=== PATIENT | male | born 1960 | race Caucasian/White ===

== ENCOUNTER → 2016-10-27 | Outpatient (CLI) | payer MEDICARE, OTHER ==
[2014-02-23 16:43] VITALS: BP 101/59
[~2016-10-27] MED LIST: BACL10TA PO; FENT1PAT17 TD; FOLI1TAB16 PO; FURO-68 PO; LACT10SO26 PO; LORA-627 PO; MULT1TAB97 PO; OMEP20TA PO; OMEP20TA63 PO; OXYC10TA PO; PRAM0.255 PO; SPIR100T PO; albuterol inhaler INH
--- NOTE | 2016-10-27 08:41 | KCIC ---
PROCEDURE Head CT without contrast; maxillofacial bone CT without contrast. HISTORY Chronic headaches. Maxillary sinusitis. Congestion. TECHNIQUE Computed tomographic images of the head and maxillofacial bones were obtained without contrast. One or more of the following individualized dose reduction techniques were utilized for this examination: 1. Automated exposure control; 2. Adjustment of the mA and/or kV according to patient size; 3. Use of iterative reconstruction technique. COMPARISON None. FINDINGS There is no acute or subacute hemorrhage. There is no mass effect or midline shift. There is no hydrocephalus. The [place] and white matter differentiation pattern is intact. The mastoid air cells are clear. The temporomandibular joints are intact. No calvarial lesion is seen. There is mild right greater than left maxillary and mild frontal, ethmoid and sphenoid sinus mucosal thickening. The ostiomeatal units are patent. There is rightward nasal septal deviation. There is no sinus wall erosion or thickening. The orbits are unremarkable. There is lucency surrounding the roots of multiple maxillary teeth. There are multiple missing and partially missing teeth and suspected dental caries. There is degenerative endplate remodeling and facet arthropathy at the visualized cervical vertebral levels. There is mild anterolisthesis of C3 on C4 and C4 on C5. There is bilateral foraminal stenosis at the upper cervical levels, incompletely evaluated on the current exam. IMPRESSION 1. No acute intracranial finding. 2. Mild paranasal sinus mucosal thickening without obstruction of the ostiomeatal units or an air-fluid level. 3. Nasal septal deviation. 4. Poor dentition, including multiple maxillary periapical lucencies, dental caries, and missing and fractured teeth. 5. Degenerative change within the visualized cervical spine, incompletely evaluated on the current exam. Electronically signed by: Celena Alexander (Oct 27, 2016 08:39:30)
== END | disposition home or self-care (01) ==
LOC: KCIC CT 07:45
PROVIDERS: ATTEND Nurse Practitioner Family
DX: M47.892 Other spondylosis, cervical region (principal); J32.0 Chronic maxillary sinusitis; J34.2 Deviated nasal septum; M48.02 Spinal stenosis, cervical region; M12.88 Other specific arthropathies, not elsewhere classified, other specified site
CPT/HCPCS: 70450; 70486

== ENCOUNTER → 2017-04-29 | Outpatient (CLI) | payer MEDICARE ==
[2014-02-23 16:43] VITALS: BP 101/59
[~2017-04-29] MED LIST changes: -OMEP20TA PO; +OMEP20TA8 PO
--- NOTE | 2017-04-29 10:19 | KCIC ---
4 view cervical spine dated 04/29/2017. Comparison made to 12/31/2015. CLINICAL INDICATION: Neck pain for 9 months. Bilateral shoulder pain. FINDINGS: AP, lateral, swimmer's and odontoid views obtained. There is grade 1 anterolisthesis of C3 on C4, new from prior study. There is also slight anterolisthesis of C4 on C5, new. No prevertebral soft tissue swelling. Mild hypertrophic change of the superior and inferior endplates throughout with mild multilevel uncovertebral spurring and mild/moderate facet arthropathy. C1-C2 articulation unremarkable. IMPRESSION: 1. Grade 1 anterolisthesis of C3 on C4, new from prior study. Instability at this level cannot be excluded. MRI would better evaluate. 2. Mild listhesis of C4 on C5, slightly increased from prior exam. 3. Mild to moderate multilevel spondylosis. Electronically signed by: Boris Bone MD (04/29/2017 10:16 AM) [facility]-[id number]
== END | disposition home or self-care (01) ==
LOC: KCIC 08:29
PROVIDERS: ATTEND Psychiatry & Neurology Neurology with Special Qualifications in Child Neurology
DX: M47.892 Other spondylosis, cervical region (principal); M12.88 Other specific arthropathies, not elsewhere classified, other specified site
CPT/HCPCS: 72040

== ENCOUNTER → 2017-05-07 | Outpatient (CLI) | payer MEDICARE ==
[2014-02-23 16:43] VITALS: BP 101/59
--- NOTE | 2017-05-07 09:30 | KCIC ---
EXAM: Cervical spine, flexion and extension. HISTORY: Pain. Kyphosis. COMPARISON: 12/31/2015 and 04/29/2017. FINDINGS: Frontal, lateral, bilateral oblique, flexion and extension and odontoid views of the cervical spine are obtained. There is thoracic kyphosis and reversal of inferior cervical lordosis. There is moderate anterolisthesis of C3 on C4 measuring 7 mm. This decreases to 6 mm with extension and does not change with flexion. There is 3 mm anterolisthesis of C4 on C5 which does not change between flexion and extension. There is degenerative endplate remodeling with disc space narrowing and anterior predominant osteophytosis at C6-C7, and to a lesser extent, C5-C6. There is facet arthropathy at multiple levels, contusion to suspected foraminal stenosis. This difficult to confirm given the degree of thoracic kyphosis. IMPRESSION: 1. Thoracic and cervical kyphosis and multilevel cervical anterolisthesis, predominantly at C3-C4. The degree of listhesis at C3-C4 minimally decrease in with extension and does not change with flexion. There is no change between flexion and extension at the remainder of the cervical levels. 2. Degenerative change predominantly at C6-C7, and to a lesser extent, C5-C6. Electronically signed by: Celena Alexander MD (05/07/2017 9:27 AM) [facility]
--- NOTE | 2017-05-07 09:43 | KCIC ---
EXAM: Cervical spine CT without contrast. HISTORY: Pain. Anterolisthesis. Kyphosis. TECHNIQUE: Computed tomographic images of the cervical spine were obtained without contrast. Multiplanar reformatting was performed. *One or more of the following individualized dose reduction techniques were utilized for this examination: 1. Automated exposure control. 2. Adjustment of the mA and/or kV according to patient size. 3. Use of iterative reconstruction technique. COMPARISON: Radiographs obtained on the same date. FINDINGS: There is mild cervical kyphosis and moderate thoracic kyphoscoliosis. There is anterolisthesis of C3 on C4, measuring 5 mm. There is anterolisthesis of C2 on C3 and C4 on C5, measuring 2 mm. There is a mild superior endplate depression at C7, degenerative in etiology. There are few small lucent lesions within the cervical spine primarily at C6 and T1, 2 small to characterize and possibly hemangiomas. There is degenerative endplate remodeling with left anterior endplate osteophytosis at C6-C7. There is additional endplate remodeling and osteophytosis at the remainder of the cervical levels. There are bridging anterior osteophytes at the visualized upper thoracic vertebral levels. There are a few endplate Schmorl's nodes. There is advanced facet arthropathy primarily at the upper cervical levels, described in detail below. At C2-C3, there is a disc bulge and endplate remodeling. There is moderate right facet arthropathy. There is no stenosis. At C3-C4, there is a disc bulge and endplate remodeling. There is moderate right and severe left facet arthropathy. There is uncovertebral arthropathy. There is moderate to severe bilateral foraminal stenosis. There is mild central canal stenosis. At C4-C5, there is a suspected posterior central disc protrusion superimposed on a disc bulge and endplate remodeling. There is moderate right and mild left facet arthropathy. There is right greater than left uncovertebral arthropathy. There is moderate right and mild left foraminal stenosis. There is mild central canal stenosis. At C5-C6, there is a broad-based posterior central disc protrusion superimposed on a disc bulge and endplate remodeling. There is right greater than left uncovertebral arthropathy. There is moderate right foraminal stenosis. There is moderate to severe central canal stenosis, measuring 6.4 mm in anterior posterior dimension. At C6-C7, there is a right paracentral to foraminal disc protrusion and osteophyte complex imposed on a disc bulge and left anterior lateral predominant endplate osteophytosis. There is right greater than left uncovertebral arthropathy. There is moderate right and mild left foraminal stenosis. At C7-T1, there is a right paracentral to foraminal disc protrusion and osteophyte complex. There is no stenosis. At T1-T2, there is no stenosis. At T2-T3, there is a right paracentral disc protrusion and osteophyte complex. There is no stenosis. IMPRESSION: 1. Multilevel degenerative change throughout the cervical spine, described in detail above. This contributes to moderate to severe bilateral foraminal and mild central canal stenosis at C3-C4, moderate right and mild left foraminal and mild central canal stenosis at C4-C5, moderate right foraminal and moderate to severe central canal stenosis at C5-C6, and moderate right and mild left foraminal stenosis at C6-C7. 2. Mild cervical kyphosis and moderate thoracic kyphoscoliosis. There is superimposed anterolisthesis primarily at C3-C4. 3. Small lucent lesions within C6 and T1. These are too small to characterize. In the absence of known malignancy, these may be tiny hemangiomas or areas of focal bone demineralization. 4. Bridging anterior osteophytes at the upper thoracic levels, incompletely evaluated on the current exam. Electronically signed by: Celena Alexander MD (05/07/2017 9:39 AM) [facility]-KCIC1
== END | disposition home or self-care (01) ==
LOC: KCIC CT 08:16
PROVIDERS: ATTEND Psychiatry & Neurology Neurology with Special Qualifications in Child Neurology
DX: M48.02 Spinal stenosis, cervical region (principal); M50.321 Other cervical disc degeneration at C4-C5 level; M50.322 Other cervical disc degeneration at C5-C6 level; M50.323 Other cervical disc degeneration at C6-C7 level
CPT/HCPCS: 72052; 72125

== ENCOUNTER → 2017-05-13 | Outpatient (CLI) | payer MEDICARE ==
[2014-02-23 16:43] VITALS: BP 101/59
[~2017-05-13] MED LIST changes: +AMBR5TAB3 PO; +GABA-586 PO; +IOHEXOL 180 MG/ML 10 ML VIAL. ONE; +MONT10TA9 PO; +POTASSIUM CHLO10 MEQ PO; +SAW450CA2 PO; +TADA20TA33 PO; +TRAM50TA PO; +VITA1TAB19 PO; +methylPREDNISolone ACETATE 40 MG/ML VIAL. ONE; +methylPREDNISolone ACETATE 80 MG/ML VIAL. ONE
--- NOTE | 2017-05-13 18:25 | PAIN ---
DATE OF SERVICE: 05/13/2017 INITIAL CONSULTATION FOR PAIN CLINIC CHIEF COMPLAINT: Neck and bilateral shoulder pain. HISTORY OF PRESENT ILLNESS: This is a 56-year-old male who presents with history of pain in the base of the neck and shoulders for about 4 months many years by his report prior to this without any specific injury or accident that he is aware of, but last 3-4 months is becoming much much worse in the base of the neck and shoulders, occasional headaches on the left side that mostly at the base of the neck and shoulders with some occasional radiation in the upper extremities but mostly posterior in the shoulders. The patient reports he has had physical therapies in the past, which were not very helpful and is doing some stretching on his own at home, but as he goes long he has much more forward flexion of his neck, this is more comfortable and he is noticeably flexed in position during the interview and exam. The patient reports the pain is sharp, stabbing, shooting intermittent in intensity, but always present. Also, has some low back issues, which is secondary at this point. The patient reports his disability range is 0 in all categories, but reports that it occasionally awakens him from sleep, not most nights. He does take some sleeping medication. The patient reports it does not affect his ability to walk or bowel or bladder control in fact the patient did have a CT scan of the cervical spine. He is unable to lay flat for more than few minutes secondary to the pain in his neck and back. CT scan showing multilevel degenerative changes throughout the cervical spine, moderate to severe bilateral foraminal mild central canal stenosis at C3-C4, moderate right and mild left foraminal central canal stenosis, C4-C5, moderate right foraminal, moderate to severe central canal stenosis at C5-C6 and moderate right and mild left foraminal stenosis at C6-C7. The patient reports no loss of motor function to upper extremities, but significant fatigability, more on the left than the right with repetitive activity. PAST MEDICAL HISTORY: Significant for arthritis, cirrhosis, shortness of breath, pulmonary hypertension, previous blood clots, sinus infections. PREVIOUS SURGERY: Include lumbar laminectomy in 1990, eye surgery in 1990 also hernia repair ventral in 2007 and TIPS procedure for his liver in 2007, also. CURRENT MEDICATIONS: Include Prilosec, oxycodone, folic acid, Mirapex, daily vitamins, Aldactone, baclofen, loratadine, gabapentin, saw palmetto, B complex , montelukast, tramadol, potassium, tadalafil and Letairis. ALLERGIES: The patient has no known drug allergies. FAMILY HISTORY: Significant for lung cancer, Alzheimer's and heart disease. SOCIAL HISTORY: The patient does not smoke, quit drinking many years ago, single, lives with his brother locally in [place], [place]. REVIEW OF SYSTEMS: The patient's review of systems is positive for those items mentioned in history of present illness. All systems reviewed and otherwise negative. It is complete, full and well documented on the patient's chart. PHYSICAL EXAMINATION: VITAL SIGNS: Blood pressure 137/70, pulse is 96, respirations 18, temperature is 98.0 degrees Fahrenheit. Height is 5 feet 10 inches, weighs 193 pounds. GENERAL: The patient is awake, alert, oriented, appropriate, very pleasant demeanor. HEENT: Head shows normocephalic, atraumatic. Extraocular movements are intact, symmetrical. Oral cavity, mucous membranes are moist and pink. Dentition is intact. NECK: Shows anterior throat supple without palpable lymphadenopathy noted. Swallow reflex is symmetrical. CHEST: Shows normal on inspection. Breath sounds clear to auscultation bilaterally. HEART: Shows S1 and S2 clear. ABDOMEN: Soft, nontender, nondistended. No palpable organomegaly. No rebound or guarding demonstrated. BACK: Shows spine grossly in the midline. Significant forward flexion of the cervical spine as well as some increased thoracic kyphosis noted and some flattening of lumbar lordotic curvature. No previous bruises, lesions or rashes are noted. The patient has some old scarring from apparent previous skin acne throughout the back. With palpation cervical paraspinous musculature shows moderate tender with palpation bilaterally, somewhat worse on the left than the right, but very firm and tender musculature in the superior, medial and inferior aspect of the cervical paraspinous musculature, also into the trapezius musculature bilaterally with significant radiation. The patient shows difficult rotational motion of cervical spine, limited, significantly with extension as well as with slight right lateral rotation, which is still about 45 degrees maximum secondary to pain. Forward flexion is already in a flexed position. The patient can flex his neck even further without significant pain with this maneuver. Upper extremities showed deep tendon reflexes are 1+ in the biceps and triceps tendons. Motor exam is approximately 5/5 with air intercept controller strength, biceps and triceps flexion. Peripheral pulses are 2+ radial distribution. No peripheral edema is noted. No clubbing or cyanosis. Upper extremities are warm and dry to touch, equal in color and appearance. Shoulder shrug is strong and intact without loss of strength and resistance as is abduction of the shoulders at 90 degrees without loss of strength bilaterally. IMPRESSION: 1. This is 56-year-old male with long history of neck and bilateral shoulder pain, worse over the past 3-[address] scan of cervical spine as noted. 3. History of cirrhosis. 4. Arthritis. 5. Pulmonary hypertension. PLAN: Options were discussed with the patient including conservative medical management, physical therapy, interventional techniques and he has done physical therapy in the past and would like to pursue interventional techniques. We discussed a cervical epidural steroid injection using description as well as anatomical models to describe the procedure. Risks were then discussed including, but not limited to bleeding, infection, possibility of epidural hematoma and subsequent neurological compromise, dural puncture, headaches, spinal cord and/or nerve damage, side effects of steroid medication and poor results regarding pain control. The patient understands and wishes to proceed. The patient will return to clinic in approximately 2 weeks for followup. He was counseled on return appointment, activity level and side effects to be aware of. DIAGNOSES: Cervical radiculopathy with cervical degenerative disk disease. PROCEDURE: Cervical epidural steroid injection in translaminar approach at C6-C7 level using C-arm fluoroscopic guidance under sterile prep and drape using local anesthetic. MEDICATION INJECTED: A total of 120 mg Depo-Medrol plus 5 mL of preservative-free normal saline and 2 mL of Isovue for contrast. CONDITION ON DISCHARGE: Stable. The patient tolerated procedure well, had no complications. DARÍO ABARCA MD DR: LEON/morris JOB#: [id number] / [id number] JULIO Rocha MD
== END | disposition home or self-care (01) ==
LOC: PNCL 09:36
PROVIDERS: ATTEND Anesthesiology
DX: M50.123 Cervical disc disorder at C6-C7 level with radiculopathy (principal); I27.2 Other secondary pulmonary hypertension; I25.10 Atherosclerotic heart disease of native coronary artery without angina pectoris; K21.9 Gastro-esophageal reflux disease without esophagitis; Z86.69 Personal history of other diseases of the nervous system and sense organs; Z87.39 Personal history of other diseases of the musculoskeletal system and connective tissue
CPT/HCPCS: 62321; J1030; J1040

== ENCOUNTER → 2017-05-21 | Outpatient (CLI) | payer MEDICARE ==
[2014-02-23 16:43] VITALS: BP 101/59
[~2017-05-21] MED LIST changes: -IOHEXOL 180 MG/ML 10 ML VIAL. ONE; -methylPREDNISolone ACETATE 40 MG/ML VIAL. ONE; -methylPREDNISolone ACETATE 80 MG/ML VIAL. ONE
--- NOTE | 2017-05-24 17:26 | EEG ---
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 DESCRIPTION: This is a digital study. Electrodes are placed according to the international 10-20 system. Bipolar and referential montages are available. Activation procedures typically include hyperventilation and intermittent photic stimulation. INTERPRETATION: The waking background consists of 9-10 Hz, 50-100 microvolt activity, symmetrically distributed over parietooccipital regions and reactive to eye opening. Hyperventilation and intermittent photic stimulation are noncontributory. Stage 1 sleep is achieved with normal electroencephalogram patterns. IMPRESSION: This electroencephalogram with the patient awake and asleep is within normal limits. There is no focal, paroxysmal, or epileptiform activity. Thank you for letting us help with the patient's care. JULIO MCDANIEL MD DR: RAFAEL/morris JOB#: [id number] / [id number] KYLAH Reddy MD
== END | disposition home or self-care (01) ==
LOC: RT 08:55
PROVIDERS: ATTEND Psychiatry & Neurology Neurology with Special Qualifications in Child Neurology
DX: G25.3 Myoclonus (principal); R06.4 Hyperventilation
CPT/HCPCS: 95816

== ENCOUNTER → 2017-05-27 | Outpatient (CLI) | payer MEDICARE ==
[2014-02-23 16:43] VITALS: BP 101/59
--- NOTE | 2017-05-27 12:21 | PAIN ---
DATE OF SERVICE: 05/27/2017 DIAGNOSES: Cervical radiculopathy with cervical degenerative disk disease and cervicalgia. HISTORY OF PRESENT ILLNESS: The patient is a 56-year-old male who returns for followup status post cervical epidural steroid injection x 1 on 05/13/2017. The patient reports 75% improvement for only about 2 days and the pain returned fairly quickly within the next day or 2 to his baseline level in the base of the neck and shoulders and somewhat worse on the right than the left, but still present in the bilateral upper shoulders, neck, and radiating to the right arm more than the left. The patient reports no new motor or sensory deficits, rates his pain as an 8 on a scale of 10 at its worst, 7 at its least. The patient reports he only sleeps about 3-4 hours, but the pain has not been awaking him from sleep, worse with activity and repetitive motions in the upper extremities. The patient reports no new motor or sensory deficits. He is still having headaches, an occasional increased headache with rotation of the spine. The patient reports no visual disturbances, no new motor or sensory deficits, no new bowel or bladder incontinence or other complaints. PHYSICAL EXAMINATION: VITAL SIGNS: The patient's blood pressure 129/75, pulse 83, respirations 18, temperature is 98.3 degrees Fahrenheit, weight is 196 pounds. GENERAL: The patient is awake, alert, oriented, appropriate, very pleasant demeanor. HEENT: Head shows normocephalic, atraumatic. Extraocular movements are intact and symmetrical. Oral cavity shows mucous membranes moist and pink. Dentition is intact. NECK: Shows anterior throat supple without palpable lymphadenopathy noted. Swallow reflex is symmetrical. The patient has a forward flexed position in normal position of the cervical spine. CHEST: Shows normal on inspection. Breath sounds clear to auscultation bilaterally. HEART: Shows S1 and S2 clear. ABDOMEN: Soft, nontender, nondistended. BACK: Shows spine grossly midline. Again, exaggerated the thoracic kyphosis and forward flexion of the cervical spine with some flattening of the cervical lordotic curvature. Cervical paraspinous musculature is symmetrical on inspection with palpation shows some moderate tenderness bilaterally, but only diffusely in the low cervical paraspinous musculature superior, medial and lateral trapezius bilaterally and symmetrically equal without trigger points, without radiation. EXTREMITIES: Upper extremities showed deep tendon reflexes at 1+ in the biceps and triceps tendons. Motor exam is strong with tool setter strength rated at 5/5 at his biceps and triceps flexion. Options were discussed with the patient and the patient's old chart was reviewed as his current medication regimen and updated. Current review of systems is updated on today as well and he would like to hold on any further injections as he reports he has been through these before and he usually only has 2-3 days of increased pain as was the case with his last injection and would like to wait on any further interventions at this time. The patient reports that he is doing well with his medication management at this point through his primary physician and would like to continue on this path. The patient will follow up at this time on as needed basis. DARÍO ABARCA MD DR: LEON/morris JOB#: [id number] / [id number]
== END | disposition home or self-care (01) ==
LOC: PNCL 09:06
PROVIDERS: ATTEND Anesthesiology
DX: M50.10 Cervical disc disorder with radiculopathy, unspecified cervical region (principal)
CPT/HCPCS: G0463

== ENCOUNTER 2018-01-07 07:05 | Outpatient (CLI) | payer MEDICARE ==
[2018-01-07 07:32] LABS: ADD MAN DIFF? NO
[2018-01-07 07:33] LABS: BASO % 1 % (0-3); EOS # 0.1 x10^3/uL (0.0-0.7); EOS % 2 % (0-3); HEMATOCRIT 44.4 % (39.0-53.0); HEMOGLOBIN 15.1 g/dL (13.0-17.5); LYMPH # 1.1 x10^3/uL (1.0-4.8); LYMPH % 23 % (24-48); MEAN CORPUSCULAR HEMOGLOBIN 30 pg (25-35); MEAN CORPUSCULAR HGB CONC 34 g/dL (31-37); MEAN CORPUSCULAR VOLUME 88 fL (79-100); MONO # 0.5 x10^3/uL (0.0-1.1); MONO % 9 % (0-9); NEUT # 3.3 x10^3uL (1.8-7.7); NEUT % 66 % (31-73); PLATELET COUNT 191 x10^3/uL (140-400); RED BLOOD COUNT 5.05 x10^6/uL (4.30-5.70); RED CELL DISTRIBUTION WIDTH 16.5 % (11.5-14.5)
[2018-01-07 07:41] LABS: INR 1.1 (0.8-1.1); PARTIAL THROMBOPLASTIN TIME 28 SEC (24-38); PROTHROMBIN TIME PATIENT 13.5 SEC (11.7-14.0)
[2018-01-07] MEDS ORDERED: LIDOCAINE WITH 8.4% SOD BICARB 3 ML DISP.SYRIN. (07:47)
[2018-01-07] MEDS ORDERED: MIDAZOLAM HCL/PF 2 MG/2 ML VIAL. (07:52)
[2018-01-07] MEDS ORDERED: fentaNYL PF VIAL 100 MCG/2 ML VIAL (07:52)
[2018-01-07] MEDS: LIDOCAINE WITH 8.4% SOD BICARB 3 ML DISP.SYRIN. IJ (08:43)
[2018-01-07] MEDS: fentaNYL PF VIAL 100 MCG/2 ML VIAL IV (08:44)
[2018-01-07] MEDS: MIDAZOLAM HCL/PF 2 MG/2 ML VIAL. IV (08:44)
== END 2018-01-07 10:31 | disposition home or self-care (01) ==
LOC: INTRAD 07:05
DX: D47.2 Monoclonal gammopathy (principal); Z79.899 Other long term (current) drug therapy
CPT/HCPCS: 36415; 38222; 77012; 85025; 85610; 85730; 88184; 88185; 88237; 99152; J2250; J3010